=== PATIENT | male | born 1965 | race Caucasian/White ===

== ENCOUNTER → 2019-05-08 | Day surgery (SDC) | payer MEDICAID ==
[~2019-05-08] MED LIST: Propofol 200 MG/20 ML SDV IV ONE; fentaNYL 100 MCG/2 ML SDV IV ONE
[2019-05-08] MEDS: Lactated Ringers 1,000 ML IV SCH (09:09)
[2019-05-08 10:52] VITALS: BP 130/80; PULSE 90
--- NOTE | 2019-05-11 11:41 | OR ---
DATE OF OPERATION: 05/08/2019 PREOPERATIVE DIAGNOSIS: POSITIVE COLOGUARD. POSTOPERATIVE DIAGNOSIS: POSITIVE COLOGUARD. SURGEON: Antony Booker MD PROCEDURE: DIAGNOSTIC COLONOSCOPY WITH FORCEPS POLYP REMOVAL X2. ANESTHESIA: MAC. COMPLICATIONS: None. SPECIMEN: Two small flat sessile polyps, each 2 mm or less, left colon. FINDINGS: 1. Full-length colonoscopy. 2. Mild sigmoid diverticulosis. 3. Sessile polyps x2, sigmoid colon, each 3 mm or less. RECOMMENDATIONS: Followup colonoscopy in 5 years. INDICATIONS: The patient has a recent Cologuard which was positive. He has never had a prior endoscopy. DESCRIPTION OF PROCEDURE: The patient was prepped and draped, placed in the left lateral decubitus position. A lubricated Olympus colonoscope was inserted and with ease advanced to the cecum. Direct visualization of the ileocecal valve and appendiceal orifice was accomplished. The bowel prep was adequate. Upon withdrawal of the scope, the patient had no lesions in the cecum, ascending or transverse colon. Past the splenic flexure and what appeared to be likely the proximal and sigmoid colon, the patient had a small, flat, probably hyperplastic polyp that was hard to see after insufflating this gentleman. The area was biopsied and removed in its entirety what we could see. He was extremely difficult to keep air and he had constant release of air and the left colon was hard to visualize due to that. There was a 2nd small polyp around 30 cm in the distal sigmoid which was removed with a forceps as well. This was flat and probably 2 mm or less. I could find no worrisome polyps, masses, ulceration, or bleeding sites. There were no vascular abnormalities or signs of colitis. The rectal vault appeared benign. Retroflexion of the scope in the rectum showed no anal lesions. Air was suctioned, scope removed without complication. ASHU/STEFFANIE /[id number]
== END ==
LOC: CC.SDS 08:42
PROVIDERS: ATTEND Family Medicine
DX: K63.5 Polyp of colon (principal); K57.30 Diverticulosis of large intestine without perforation or abscess without bleeding; E78.5 Hyperlipidemia, unspecified; M19.90 Unspecified osteoarthritis, unspecified site; Z79.82 Long term (current) use of aspirin
CPT/HCPCS: 45380; J2704; J3010; J7120